=== PATIENT | female | born 1985 | race African-American/Black ===

== ENCOUNTER 2020-12-27 16:13 | Emergency (ER) | payer OTHER ==
[~2020-12-27] VITALS: Ht 154.9 cm; Wt 73.0 kg
[2020-12-27 16:22] VITALS: BP 100/67
[2020-12-27] MEDS ORDERED: KETOROLAC 30MG/ML VIAL IM ONE (16:45)
[2020-12-27] MEDS ORDERED: CYCLOBENZAPRINE 10MG TABLET PO ONE (16:45)
[2020-12-27] MEDS ORDERED: CYCL10TA7 MT (18:00)
[2020-12-27] MEDS ORDERED: NAP5EC MT (18:00)
== END 2020-12-27 18:30 | disposition home or self-care (01) ==
LOC: ER 16:13
DX: M54.2 Cervicalgia (principal)
CPT/HCPCS: 81025; 93005; 96372; 99283; J1885